=== PATIENT | male | born 1960 | race Asian ===

== ENCOUNTER 2018-08-01 14:55 | Emergency (ER) | payer OTHER ==
[~2018-08-01] VITALS: Ht 119.4 cm; Wt 71.7 kg
[2018-08-01 15:19] VITALS: BP 140/93; TEMP 99.2
[2018-08-01 15:51] LABS: PLATELET COUNT 240 K/uL (142-355)
[2018-08-01 15:53] LABS: POTASSIUM 4.6 mmol/L (3.6-5.2)
[2018-08-01] MEDS ORDERED: ZINC40OI11 TOP (17:20)
[2018-08-01] MEDS ORDERED: HYDR500C PO (17:21)
[2018-08-01] MEDS ORDERED: KP FOLIC ACID1 MG PO (17:21)
[2018-08-01] MEDS ORDERED: TAMS0.4C PO (17:22)
[2018-08-01] MEDS ORDERED: OMEP40CA PO (17:22)
[2018-08-01] MEDS ORDERED: MULTIVITAMI2 PO (17:22)
[2018-08-01] MEDS ORDERED: VITAMIN D50000 UNIT PO (17:23)
[2018-08-01] MEDS ORDERED: D32000 UNI1 PO (17:24)
[2018-08-01] MEDS ORDERED: GABA300C2 PO (17:24)
[2018-08-01] MEDS ORDERED: KETOTIFEN OPTH (17:25)
[2018-08-01] MEDS ORDERED: SENNA LAX8.6 MG PO (17:26)
[2018-08-01] MEDS ORDERED: SODI650T PO (17:26)
[2018-08-01] MEDS ORDERED: GABA400C2 PO (17:27)
[2018-08-01] MEDS ORDERED: QUETIAPINE50 MG PO (17:28)
[2018-08-01] MEDS ORDERED: QUET25TA2 PO (17:28)
[2018-08-01] MEDS ORDERED: DIAZ5TAB20 PO (17:30)
[2018-08-01] MEDS ORDERED: DILAUDID8 MG PO (17:31)
[2018-08-08] MEDS ORDERED: CLON0.5T36 PO (10:55)
[2018-08-08] MEDS ORDERED: DOXYCYCL HYC100 MG PO (10:57)
[2018-08-08] MEDS ORDERED: ERTA1INJ2 IM (10:59)
[2018-08-08] MEDS ORDERED: FLUOXETINE20 MG PO (11:00)
[2018-08-08] MEDS ORDERED: OLANZAPINE10 MG PO (11:00)
== END 2018-08-01 18:13 | disposition other institution (70) ==
LOC: ED 15:03
DX: N39.0 Urinary tract infection, site not specified (principal); R91.8 Other nonspecific abnormal finding of lung field; Z04.6 Encounter for general psychiatric examination, requested by authority
CPT/HCPCS: 80053; 81000; 85027; 87077; 87086; 87088; 87186; 93005; 99285